=== PATIENT | female | born 1995 | race Caucasian/White ===

== ENCOUNTER 2017-08-29 09:01 | Emergency (ER) | payer BC, OTHER ==
[~2017-08-29] VITALS: Ht 165.1 cm; Wt 69.9 kg
[2017-08-29 09:06] VITALS: BP 140/85
--- NOTE | 2017-08-29 09:20 | NUR ---
PATIENT PRESENTS TO ED WITH C/O EPIGASTIC PAIN . PT STATES THAT SHE HAD GASTRITIS AND HAS BEEN DRINKING SOME BEER . DENIES N/V/D; SKIN IS PINK/WARM/DRY; AAOX4 WITH EVEN AND STEADY GAIT; LUNGS CLEAR BL; HR EVEN AND REGULAR; PT DENIES ANY FEVER, CP, SOB, OR COUGH AT THIS TIME; PATIENT STATES PAIN OF 5/10 AT THIS TIME;PATIENT POSITIONED FOR COMFORT; HOB ELEVATED; BEDRAILS UP X2; BED DOWN. ER MD MADE AWARE OF PT STATUS.
--- NOTE | 2017-08-29 09:22 | NUR ---
EVLAUTING PT AT BEDSIDE.
[2017-08-29] MEDS ORDERED: DICYCLOMINE HCL LIQUID 20 MG, ALUMINUM HYD/MAG/SIMETHICONE 30 ML, LIDOCAINE VISCOUS 2% ... PO ONE ×3 (09:25)
--- NOTE | 2017-08-29 10:29 | NUR ---
Patient discharged with v/s stable. Written and verbal after care instructions given and explained. Patient alert, oriented and verbalized understanding of instructions. Ambulatory with steady gait. All questions addressed prior to discharge. ID band removed. Patient advised to follow up with PMD. Rx of Nitrofurantoin 100 mg capusle, Mylanta 200 mg-20mg/5mL suspension, Protonix 40 mg tab given. Patient educated on indication of medication including possible reaction and side effects. Opportunity to ask questions provided and answered.
[2017-08-29 10:36] VITALS: BP 145/88
== END 2017-08-29 10:29 | disposition home or self-care (01) ==
LOC: MED 09:01
DX: N39.0 Urinary tract infection, site not specified (principal); K29.70 Gastritis, unspecified, without bleeding
CPT/HCPCS: 81002; 81025; 99283